=== PATIENT | female | born 1995 | race Caucasian/White ===

== ENCOUNTER 2016-12-14 08:08 | Emergency (ER) | payer OTHER ==
[~2016-12-14] VITALS: Ht 167.6 cm; Wt 56.8 kg
[2016-12-14 08:11] VITALS: TEMP 98
[2016-12-14] MEDS ORDERED: Birth Control (08:16)
[2016-12-14 08:43] LABS: BASO % 0.6 % (0.0-2.0); EOS # 0.2 (0.0-0.7); EOS % 3.3 % (0-4.0); GRAN # 4.9 (1.4-6.5); GRAN % 70.1 % (42.2-75.2); HEMATOCRIT 38.6 % (37.0-47.0); HEMOGLOBIN 13.2 g/dl (12.5-16.0); LYMPH # 1.5 (1.2-3.4); LYMPH % 20.9 % (20.0-51.0); MEAN CELL VOLUME 89 fl (80.0-100.0); MEAN CORPUSCULAR HEMOGLOBIN 31 pg (27.0-31.0); MEAN CORPUSCULAR HGB CONC 34 g/dl (33.0-37.0); MEAN PLATELET VOLUME 9.9 fl (7.4-10.4); MONO # 0.3 (0.1-0.6); MONO % 4.8 % (1.7-9.3); PLATELET COUNT 274 K/mm3 (130-400); RED BLOOD COUNT 4.33 M/mm3 (4.10-5.30); REDCELL DISTRIBUTION WIDTH-CV 12.4 % (11.5-14.5); WHITE BLOOD COUNT 6.9 K/mm3 (4.8-10.8)
[2016-12-14 08:58] LABS: ADJUSTED CALCIUM 8.8 mg/dL (8.4-10.2); ALBUMIN 4.5 gm/dL (3.5-5.0); BILIRUBIN,TOTAL 0.7 mg/dL (0.0-1.0); CALCIUM 9.2 mg/dL (8.4-10.2); CREATININE, serum 0.75 mg/dL (0.52-1.25); POTASSIUM 3.8 mmol/L (3.4-5.0); TOTAL PROTEIN 8.4 gm/dL (6.4-8.2)
[2016-12-14 09:00] LABS: PH 5 (5-8); SQUAMOUS EPITHELIAL 0-2 /hpf; URINE APPEARANCE Clear; URINE BACTERIA None Seen /hpf; URINE BILIRUBIN Negative (NEGATIVE); URINE BLOOD Negative (NEGATIVE); URINE COLOR Yellow; URINE GLUCOSE Negative (NEGATIVE); URINE KETONE Negative (NEGATIVE); URINE RBC 0-2 /hpf; URINE UROBILINOGEN Negative (NEGATIVE); URINE WBC 0-2 /hpf
[2016-12-14 09:01] LABS: C-REACTIVE PROTEIN 0.5 mg/dL (0.0-0.9)
[2016-12-14] MEDS ORDERED: FLEXERIL 1010 MG/TAB PO (12:13)
[2016-12-14] MEDS ORDERED: NORCO 325 MG-51 TAB PO (12:13)
[2016-12-14 12:38] VITALS: BP 102/65; PULSE 68
== END 2016-12-14 12:40 | disposition home or self-care (01) ==
LOC: COL.ER 08:08 → EDBD 08:10 → COL.ER 12:40
PROVIDERS: Nurse Practitioner
DX: M54.6 Pain in thoracic spine (principal)
CPT/HCPCS: J1170; J1885; J2270

== ENCOUNTER → 2016-12-17 | Outpatient (CLI) | payer OTHER ==
[~2016-12-17] MED LIST: Birth Control; FLEXERIL 1010 MG/TAB PO; NORCO 325 MG-51 TAB PO
== END ==
LOC: COL.RAD 15:10
DX: M51.34 Other intervertebral disc degeneration, thoracic region (principal)
CPT/HCPCS: A9585